=== PATIENT | male | born 1945 | race Caucasian/White ===

== ENCOUNTER 2016-07-06 14:28 | Emergency (ER) | payer MEDICARE, OTHER ==
--- NOTE | 2016-07-06 15:32 | ED ---
Psych HPI - General Chief Complaint: Psychiatric Symptoms Stated Complaint: Psych Eval Time Seen by Provider: 07/06/16 15:21 Source: patient Mode of arrival: ambulatory - History of Present Illness Initial Comments: This 70-year-old white male presents with friend with the complaint of depression. He does have a long-standing history of depression but it is been worse over the past 2 weeks. He seems to have decreased energy and has apparently been stating that he would just like to go to sleep and . He has not had any definitive suicidal ideations or suicide attempts. He has had some recent changes in his psychiatric medications. His been dealing with some dizziness for the past 2 months and has had thorough workup in this regard with unknown cause. No other complaints or modifying factors. There is no chest pain or shortness breath or abdominal pain fever or chills. - Related Data Home Medications Medication Instructions Recorded Confirmed Cyanocobalamin [Vitamin B-12] 500 mcg PO DAILY 07/06/16 07/06/16 Dabigatran [Pradaxa] 150 mg PO BID 07/06/16 07/06/16 Dicyclomine [Bentyl] 20 mg PO TID 07/06/16 07/06/16 Escitalopram [Lexapro] 10 mg PO DAILY 07/06/16 07/06/16 Losartan Potassium 100 mg PO DAILY 07/06/16 07/06/16 Melatonin 20 mg PO HS 07/06/16 07/06/16 Omeprazole 40 mg PO DAILY 07/06/16 07/06/16 Simvastatin [Zocor] 80 mg PO HS 07/06/16 07/06/16 Sotalol [Betapace] 120 mg PO BID 07/06/16 07/06/16 clonazePAM [KlonoPIN] 0.5 mg PO BID PRN 07/06/16 07/06/16 Allergies Allergy/AdvReac Type Severity Reaction Status Date / Time No Known Allergies Allergy Unverified 07/06/16 15:36 Review of Systems ROS Statement: Those systems with pertinent positive or pertinent negative responses have been documented in the HPI. ROS Other: All systems not noted in ROS Statement are negative. Past Medical History Past Medical History: Atrial Fibrillation, Heart Failure Additional Past Medical History / Comment(s): barretts esophagus History of Any Multi-Drug Resistant Organisms: None Reported Past Surgical History: Ablation, Back Surgery, Cholecystectomy Additional Past Surgical History / Comment(s): turp Past Psychological History: Depression Smoking Status: Never smoker Past Alcohol Use History: Rare Past Drug Use History: None Reported General Exam - General Exam Comments Initial Comments: GENERAL: The patient is well nourished and well hydrated. VITAL SIGNS: Heart rate, blood pressure, respiratory rate reviewed as recorded in nurse's notes. EYES: Pupils are round and reactive. Extraocular movements are intact. No conjunctival / lid redness or swelling. ENT: No external evidence of injury, swelling, or ecchymosis. Airway is patent. Throat is clear. NECK: Nontender. No swelling or evidence of injury. No subcutaneous emphysema. Trachea is midline. No thyroid mass. HEART: Regular rate and rhythm. Good peripheral pulses. LUNGS/CHEST: Breath sounds clear and equal bilaterally. No rales, rhonchi, or wheezes. No ecchymosis, subcutaneous emphysema, or tenderness. ABDOMEN: Abdomen soft without tenderness. No palpable masses or organomegaly. No peritoneal signs. No abdominal wall swelling or ecchymosis. EXTREMITIES: No extremity tenderness. Normal muscle tone and function. No thoracolumbar tenderness. NEUROLOGIC: Sensation is grossly intact. Cranial nerve exam reveals face is symmetrical, tongue is midline, speech is clear. SKIN: No abrasions or ecchymosis is noted. No induration or masses noted. PSYCHIATRIC: Alert and oriented. Appropriate behavior and judgment. There is a flat affect noted. Limitations: no limitations Course Vital Signs 07/06/16 07/06/16 15:01 18:56 Temperature 97 F L 98.0 F Pulse Rate 70 68 Respiratory 20 16 Rate Blood Pressure 142/83 190/94 O2 Sat by Pulse 96 95 Oximetry Medical Decision Making - Medical Decision Making The patient was seen and examined. All diagnostics were reviewed. Multiple laboratories have been ordered and consult will be placed for psychiatry. All of the laboratory values were essentially within normal limits. It is felt as though he is cleared for further psychiatry evaluation. The psychiatry team did evaluate the patient in the ER in the case is discussed with the psychiatry nurse. They feel as though he is stable for discharge home with close follow- up. They provided him resources for follow-up in the next couple of days. Patient and friend are apparently agreeable with this plan and he leaves in no distress. - Lab Data Result diagrams: 07/06/16 16:00 07/06/16 16:00 Lab Results 07/06/16 07/06/16 07/06/16 Range/Units 16:00 16:00 16:00 WBC 8.0 (3.8-10.6) k/uL RBC 5.19 (4.30-5.90) m/uL Hgb 16.0 (13.0-17.5) gm/dL Hct 47.1 (39.0-53.0) % MCV 90.8 (80.0-100.0) fL MCH 30.8 (25.0-35.0) pg MCHC 34.0 (31.0-37.0) g/dL RDW 13.7 (11.5-15.5) % Plt Count 175 (150-450) k/uL Neutrophils % 65 % Lymphocytes % 22 % Monocytes % 9 % Eosinophils % 2 % Basophils % 1 % Neutrophils # 5.2 (1.3-7.7) k/uL Lymphocytes # 1.7 (1.0-4.8) k/uL Monocytes # 0.7 (0-1.0) k/uL Eosinophils # 0.1 (0-0.7) k/uL Basophils # 0.1 (0-0.2) k/uL Sodium 140 (137-145) mmol/L Potassium 4.3 (3.5-5.1) mmol/L Chloride 103 (98-107) mmol/L Carbon Dioxide 25 (22-30) mmol/L Anion Gap 12 mmol/L BUN 13 (9-20) mg/dL Creatinine 0.86 (0.66-1.25) mg/dL Est GFR (MDRD) Af Amer >60 (>60 ml/min/1.73 sqM) Est GFR (MDRD) Non-Af >60 (>60 ml/min/1.73 sqM) Glucose 95 (74-99) mg/dL Calcium 9.6 (8.4-10.2) mg/dL Urine Color Yellow Urine Appearance Clear (Clear) Urine pH 6.5 (5.0-8.0) Ur Specific Ruffin 1.011 (1.001-1.035) Urine Protein Negative (Negative) Urine Glucose (UA) Negative (Negative) Urine Ketones Negative (Negative) Urine Blood Negative (Negative) Urine Nitrate Negative (Negative) Urine Bilirubin Negative (Negative) Urine Urobilinogen <2.0 (<2.0) mg/dL Ur Leukocyte Esterase Negative (Negative) Salicylates <1.0 mg/dL Urine Opiates Screen Not Detected (NotDetected) Ur Oxycodone Screen Not Detected (NotDetected) Urine Methadone Screen Not Detected (NotDetected) Ur Propoxyphene Screen Not Detected (NotDetected) Acetaminophen <10.0 ug/mL Ur Barbiturates Screen Not Detected (NotDetected) U Tricyclic Antidepress Not Detected (NotDetected) Ur Phencyclidine Scrn Not Detected (NotDetected) Ur Amphetamines Screen Not Detected (NotDetected) U Methamphetamines Scrn Not Detected (NotDetected) U Benzodiazepines Scrn Not Detected (NotDetected) Urine Cocaine Screen Not Detected (NotDetected) U Marijuana (THC) Screen Not Detected (NotDetected) Serum Alcohol <10 mg/dL Disposition Clinical Impression: Depression Disposition: HOME SELF-CARE Condition: Good Instructions: Depression (ED) Additional Instructions: Please follow-up with the psychiatric recommendations. Referrals: Nunu Orellana MD [Primary Care Provider] - 1-2 days Time of Disposition: 19:25
[2016-07-06 16:33] LABS: Appearance,Urine Clear (Clear); Bilirubin,Urine Negative (Negative); Glucose,Urine (UA) Negative (Negative); Ketones,Urine Negative (Negative); Leukocyte Esterase,Urine Negative (Negative); Nitrite,Urine Negative (Negative); PH, Urine 6.5 (5.0-8.0); Protein,Urine Negative (Negative); Specific Gravity,Urine 1.011 (1.001-1.035); UA Billing (MACRO vs. MICRO) CHEM; Urobilinogen,Urine <2.0 mg/dL (<2.0)
[2016-07-06 16:35] LABS: Basophils # (A) 0.1 k/uL (0-0.2); Basophils % (A) 1 %; CH 32.8; CHCM 36.2; Eosinophils # (A) 0.1 k/uL (0-0.7); Eosinophils % (A) 2 %; HCT 47.1 % (39.0-53.0); HDW 2.73; Luc # (Auto) 0.13; Luc % (Auto) 2; Lymphocytes # (A) 1.7 k/uL (1.0-4.8); Lymphocytes % (A) 22 %; MCH 30.8 pg (25.0-35.0); MCV 90.8 fL (80.0-100.0); Mean Platelet Volume 7.1; Monocytes # (A) 0.7 k/uL (0-1.0); Monocytes % (A) 9 %; Neutrophils # (A) 5.2 k/uL (1.3-7.7); Neutrophils % (A) 65 %; RBC 5.19 m/uL (4.30-5.90); RDW 13.7 % (11.5-15.5); WBC (Perox) 8.02
[2016-07-06 16:42] LABS: Acetaminophen <10.0 ug/mL; Alcohol <10 mg/dL; Anion Gap 12 mmol/L; Blood Urea Nitrogen 13 mg/dL (9-20); Calcium 9.6 mg/dL (8.4-10.2); Carbon Dioxide 25 mmol/L (22-30); Chloride 103 mmol/L (98-107); Glucose 95 mg/dL (74-99); Non-African American GFR(MDRD) >60 (>60 ml/min/1.73 sqM); Potassium 4.3 mmol/L (3.5-5.1); Salicylate <1.0 mg/dL; Sodium 140 mmol/L (137-145)
[2016-07-06 18:57] VITALS: RESP 16
[2016-07-06 19:44] VITALS: BP 161/85; PULSE 65; TEMP 98.8
== END 2016-07-06 19:50 | disposition home or self-care (01) ==
LOC: EC 14:28
DX: F32.9 Major depressive disorder, single episode, unspecified (principal); I50.9 Heart failure, unspecified; Z79.01 Long term (current) use of anticoagulants; Z79.899 Other long term (current) drug therapy; I48.91 Unspecified atrial fibrillation
CPT/HCPCS: 36415; 80048; 80306; 80320; 81003; 83520; 85025; 99283

== ENCOUNTER 2023-10-20 06:23 | Day surgery (SDC) | payer MEDICARE ==
[2023-10-20] MEDS ORDERED: LIDOCAINE 1% (10MG/ML) FOR IV START INTRADERMA PRN (06:40)
[2023-10-20] MEDS: LACTATED RINGERS 1,000 ML IV SCH (07:09)
[2023-10-20] MEDS ORDERED: PROPOFOL 10 MG/ML 20 ML VIAL IV ONE (07:22)
[2023-10-20] MEDS ORDERED: LIDOCAINE 1% INJ 10MG/ML (20 ML MDV) ONE (07:22)
[2023-10-20] MEDS ORDERED: PHENYLEPHRINE-0.9% NACL SYG 1,000 MCG/10 ML SYRINGE ONE (07:22)
[2023-10-20 07:23] VITALS: TEMP 97.4
--- NOTE | 2023-10-20 07:46 | P.PCN ---
Date of Procedure: 10/20/23 Procedure(s) Performed: Brief history: Patient is a pleasant 78-year-old white malescheduled for an elective upper endoscopy as well as colonoscopy as a part of evaluation ofLong-standing history of GERD and prior history of colon polyps Procedure performed: Esophagogastroduodenoscopy with biopsy Colonoscopy with biopsy Preoperative diagnosis: Long-standing history of GERD History of colon polyps Anesthesia: MAC Procedure: After informed consent was obtained from the patient was brought into the en doscopy unit and IV sedation was administered by anesthesia under continuous monitoring. Initially upper endoscopy was done. The Olympus GF 160 video endoscope was inserted inserted into the mouth and esophagus intubated without any difficulty and was gradually advanced into the stomach and duodenum and carefully examined. The bulb and second part of the duodenum appeared normal. The scope was then withdrawn into the stomach adequately insufflated with air and upon careful examination the antrum and body, cardia and fundus appeared normal. The scope was then withdrawn into the esophagus. Small hiatal hernia noted. The GE junction was located at 40 cm to the incisors. It appeared regular with no erythema erosions or ulcerations. There was a long island of Olson's appearing mucosa extending from 37-39 cm from the incisors and biopsies were done from this area. Rest of the esophagus appeared normal. Patient tolerated the procedure well. At this time the patient continued to remain sedation. Initial digital rectal examination was normal. Olympus CF 160 video colonoscope was then inserted into the rectum and gradually advanced to the cecum without any difficulty. Careful examination was performed as the scope was gradually being withdrawn. The prep was excellent. The cecum appeared normal. Ascending colon there was a 4 mm polyp that was removed by cold biopsy. Rest of the ascending colon, transverse colon, descending colon, sigmoid colon and rectum appeared normal. In the sigmoid: There was a 5 mm polyp that was removed by cold biopsy. Diffuse diverticulosis noted throughout the entire colon. Retroflexion was performed in the rectum and no lesions were noted. Patient tolerated the procedure well. Impression: 1. Upper endoscopy revealed small hiatal hernia and Olson's esophagus extending from 37-39 cm from the incisors 2. Colonoscopy revealed 4 mm ascending colon polyp, 5 mm;Sigmoid polyp Status post removal by cold biopsyand diffuse scattered diverticulosis. Recommendations: Findings of this examination were discussed with the patient as well as His family. He was advised to follow with the biopsy results. If the biopsy confirms the presence of Olson's esophagus, he can have a repeat upper endoscopy in 3 years.
[2023-10-20 08:52] VITALS: BP 123/74; PULSE 69; RESP 16
== END 2023-10-20 08:27 ==
LOC: ORWHC2ENDO 06:23
PROVIDERS: ATTEND Internal Medicine Gastroenterology
DX: Z12.11 Encounter for screening for malignant neoplasm of colon (principal); D12.2 Benign neoplasm of ascending colon; D12.5 Benign neoplasm of sigmoid colon; K21.00 Gastro-esophageal reflux disease with esophagitis, without bleeding; K22.70 Barrett's esophagus without dysplasia; K44.9 Diaphragmatic hernia without obstruction or gangrene; K57.30 Diverticulosis of large intestine without perforation or abscess without bleeding; I48.91 Unspecified atrial fibrillation; I10 Essential (primary) hypertension; E78.5 Hyperlipidemia, unspecified; M06.9 Rheumatoid arthritis, unspecified; F32.A Depression, unspecified; Z79.82 Long term (current) use of aspirin; Z86.010 Personal history of colon polyps; Z79.899 Other long term (current) drug therapy
CPT/HCPCS: 88305; 45380; 43239; J2001; J2704; J2371

== ENCOUNTER → 2024-12-06 | Outpatient (CLI) | payer MEDICARE ==
--- NOTE | 2024-12-06 16:37 | US ---
EXAMINATION TYPE: US kidneys/renal and bladder DATE OF EXAM: 12/06/2024 COMPARISON: NONE CLINICAL INDICATION: Male, 79 years old with history of R31.0 HEMATURIA; gross hematuria TECHNIQUE: Grayscale imaging of the bilateral kidneys and urinary bladder: FINDINGS: EXAM MEASUREMENTS: Right Kidney: 10.5 x 4.8 x 4.5 cm Left Kidney: 10.8 x 5.4 x 5.0 cm Post Void Residual Volume: 110 mL INCIDENTAL: prostate noted measuring 4.5 x 3.4 x 4.1cm Right Kidney: No hydronephrosis or masses seen Left Kidney: No hydronephrosis or masses seen Bladder: Anechoic Bilateral Jets seen: No Normal Post Void Residual: No There is some prominence of the prostate. IMPRESSION: 1. No acute renal ultrasound changes. 2. Some prominence of the prostate. [facility], , 12/06/2024 4:34 PM
== END | disposition home or self-care (01) ==
LOC: RADUSWWP 14:50
PROVIDERS: ATTEND Urology
DX: R31.0 Gross hematuria (principal)
CPT/HCPCS: 76770